=== PATIENT | male | born 1975 | race Two or more races ===

== ENCOUNTER → 2018-12-01 | Outpatient (CLI) | payer BC ==
--- NOTE | 2018-12-01 12:18 | KCIC ---
Bilateral diagnostic digital mammograms: Reason for examination: Left nipple pain and lump for one month. Interpretation is made with the benefit of CAD. The skin and nipples show no abnormalities. No abnormal lymph nodes are seen. The breast parenchyma is predominantly fatty. (Breast density: Category A.) There appears to be mild gynecomastia seen bilaterally which is slightly greater on the left than the right. There are no dominant masses, suspicious calcifications or architectural distortions. Impression: Mild gynecomastia bilaterally, left greater than right. Ultrasound to follow. BI-RADS Category 0: Incomplete. Needs additional imaging evaluation. Bilateral breast ultrasound: Bilateral whole breast ultrasound including evaluation of all 4 quadrants and the retroareolar and axillary regions of both breasts was performed. There is bilateral gynecomastia with some minimal fibroglandular tissue developing in the retroareolar positions bilaterally, left greater than right. There is no abnormal vascularity. No focal cystic or solid lesions are seen. No abnormal appearing lymph nodes are seen in either axilla. IMPRESSION: Mild gynecomastia bilaterally, left greater than right. No suspicious abnormality seen. Recommend 6 month follow-up. BI-RADS Category 3: Probably Benign. "Our facility is accredited by the [employer] Mammography Program." This patient's information has been entered into a reminder system for the patient to be notified with the results of her examination and a target date for the next mammogram. Electronically signed by: Jolly Funez MD (12/01/2018 12:15 PM) [id number]
== END | disposition home or self-care (01) ==
LOC: KCIC MAMMO 08:37
PROVIDERS: ATTEND Family Medicine
DX: N62 Hypertrophy of breast (principal)
CPT/HCPCS: 76641; 77066